=== PATIENT | male | born 1985 | race Caucasian/White ===

== ENCOUNTER 2020-05-13 10:22 | Inpatient (IN) | payer OTHER ==
[~2020-05-13] VITALS: Ht 181.6 cm; Wt 76.8 kg
[2020-05-13 12:23] LABS: BASOPHILS % (AUTO) 1.5 % (0.0-2.0); EOSINOPHILS % (AUTO) 2.2 % (1.0-6.0); HEMATOCRIT 44.5 % (41-53); HEMOGLOBIN 15.4 g/dL (13.5-17.5); LYMPHOCYTES # (AUTO) 1.2 K/uL (1.0-4.8); LYMPHOCYTES % (AUTO) 45.1 % (22.0-44.0); MEAN CORPUSCULAR HEMOGLOBIN 28.4 pg (26.0-34.0); MEAN CORPUSCULAR HGB CONC 34.6 G/dL (31.0-37.0); MEAN CORPUSCULAR VOLUME 82 fL (80-100); MONOCYTES # (AUTO) 0.3 K/uL (0.1-1.0); MONOCYTES % (AUTO) 10.3 % (2.0-9.0); NEUTROPHILS # (AUTO) 1.1 K/uL (1.8-7.7); NEUTROPHILS % (AUTO) 40.9 % (40.0-70.0); PLATELET COUNT (AUTO) 143 K/uL (150-450); RED BLOOD CELL COUNT(AUTO) 5.43 MIL/uL (4.50-5.90)
[2020-05-13 12:24] LABS: CREATININE 1.4 mg/dL (0.60-1.30); POTASSIUM 3.7 mmol/L (3.5-5.1)
[2020-05-13 12:30] LABS: ALBUMIN 4.7 g/dL (3.4-5.0); TOTAL PROTEIN, SERUM 7.7 g/dL (6.4-8.2)
[2020-05-13 13:13] VITALS: BP 107/75
[2020-05-13] MEDS ORDERED: ONDANSETRON HCL 4 MG/2 ML VIAL IVP PRN (13:15)
[2020-05-13] MEDS ORDERED: ACETAMINOPHEN 325 MG TABLET PO PRN ×2 (13:15→15:30)
[2020-05-13] MEDS ORDERED: 0.9% SODIUM CHLORIDE 10 ML SYRINGE IVP PRN (13:15)
[2020-05-13] MEDS ORDERED: MAGNESIUM SULFATE 2 GM, MVI, ADULT NO.1 WITH VIT K 10 ML, THIAMINE 100 MG, FOLIC ACID 1... IV ONE ×5 (14:00)
[2020-05-13] MEDS ORDERED: ALBUTEROL SULFATE HFA 90 MCG/PUFF 8 GM INHALER IH PRN (15:30)
[2020-05-13] MEDS ORDERED: MAGNESIUM HYDROXIDE SUSPENSION 30 ML UDCUP PO PRN (15:30)
[2020-05-13] MEDS ORDERED: POTASSIUM CHL 10 MEQ/WATER 50 ML IV PRN (15:30)
[2020-05-13] MEDS ORDERED: MAGNESIUM SULFATE 4 GM/WATER 100 ML IV PRN (15:30)
[2020-05-13] MEDS ORDERED: MAGNESIUM SULFATE 2 GM/WATER 50 ML IV PRN (15:30)
[2020-05-13] MEDS ORDERED: PETROLATUM,WHITE 28 GM JELLY TP PRN (15:30)
[2020-05-13] MEDS ORDERED: MAGNESIUM OXIDE 400 MG TABLET PO PRN (15:30)
[2020-05-13] MEDS ORDERED: CloNIDine HCL 0.1 MG TABLET PO PRN (15:30)
[2020-05-13] MEDS ORDERED: ONDANSETRON HCL 4 MG TABLET PO PRN (15:30)
[2020-05-13] MEDS ORDERED: DOCUSATE SODIUM 100 MG CAPSULE PO PRN (15:30)
[2020-05-13] MEDS ORDERED: MAG HYDROX/AL HYDROX/SIMETH ES 30 ML SUSPENSION UDCUP PO PRN (15:30)
[2020-05-13] MEDS ORDERED: GuaiFENesin/D-METHORPHAN [SUGAR-FREE] 200-20MG/10 ML SYRUP UDCUP PO PRN (15:30)
[2020-05-13] MEDS ORDERED: POTASSIUM CHLORIDE 20 MEQ ER TABLET PO PRN (15:30)
[2020-05-13] MEDS ORDERED: LOPERAMIDE HCL 2 MG CAPSULE PO PRN (15:30)
[2020-05-13 16:07] VITALS: BP 102/71
[2020-05-13] MEDS: THIAMINE 100 MG TABLET PO SCH (17:58)
[2020-05-13] MEDS: FOLIC ACID 1 MG TABLET PO SCH (17:58)
[2020-05-13 19:30] VITALS: BP 142/76
[2020-05-14] MEDS: IBUPROFEN 400 MG TABLET PO PRN ×2 (03:12→15:37)
[2020-05-14 05:05] VITALS: BP 128/71
[2020-05-14 07:17] VITALS: BP 103/53
[2020-05-14] MEDS: FOLIC ACID 1 MG TABLET PO SCH (08:05)
[2020-05-14] MEDS: THIAMINE 100 MG TABLET PO SCH (08:05)
[2020-05-14 15:10] VITALS: BP 100/53
[2020-05-14 20:40] VITALS: BP 99/65
[2020-05-15] MEDS ORDERED: ZOLPIDEM TARTRATE 5 MG TABLET PO PRN (00:30)
[2020-05-15 05:45] VITALS: BP 110/61
[2020-05-15 07:31] VITALS: BP 109/70
[2020-05-15] MEDS: THIAMINE 100 MG TABLET PO SCH (08:54)
[2020-05-15] MEDS: AMOX TR/POT CLAV 500 MG/125 MG TABLET PO SCH ×2 (08:54→15:28)
[2020-05-15] MEDS: FOLIC ACID 1 MG TABLET PO SCH (08:54)
[2020-05-15] MEDS ORDERED: FOLI-130 PO (14:43)
[2020-05-15] MEDS ORDERED: THIA100T80 PO (14:44)
[2020-05-15] MEDS ORDERED: IBUP-2124 PO (14:48)
[2020-05-15] MEDS ORDERED: IBUP-1506 PO (14:52)
[2020-05-15] MEDS ORDERED: AMOX1TAB15 PO (14:55)
[2020-05-15 15:48] VITALS: BP 122/78
== END 2020-05-15 20:45 | DRG 641 ==
LOC: EMS 10:30 → 6S 12:46
PROVIDERS: ADMIT Internal Medicine; ATTEND Internal Medicine
DX: E86.0 Dehydration (principal); N17.9 Acute kidney failure, unspecified; F17.210 Nicotine dependence, cigarettes, uncomplicated
CPT/HCPCS: J3411; J3475; J3490; J7030

== ENCOUNTER 2020-05-25 14:09 | Inpatient (IN) | payer OTHER ==
[~2020-05-25] VITALS: Ht 190.5 cm; Wt 69.0 kg
[~2020-05-25 14:09] MED LIST: AMOX1TAB15 PO; FOLI-130 PO; IBUP-1506 PO; THIA100T80 PO
[2020-05-25] MEDS ORDERED: SODIUM CHLORIDE 0.9% 1,000 ML IV ONE (14:45)
[2020-05-25 15:23] LABS: EOSINOPHILS % (AUTO) 1.3 % (1.0-6.0); HEMATOCRIT 40.3 % (41-53); HEMOGLOBIN 14.1 g/dL (13.5-17.5); LYMPHOCYTES # (AUTO) 1.5 K/uL (1.0-4.8); MEAN CORPUSCULAR HEMOGLOBIN 29.1 pg (26.0-34.0); MEAN CORPUSCULAR HGB CONC 35.1 G/dL (31.0-37.0); MEAN CORPUSCULAR VOLUME 83 fL (80-100); MONOCYTES # (AUTO) 0.4 K/uL (0.1-1.0); MONOCYTES % (AUTO) 12.2 % (2.0-9.0); NEUTROPHILS % (AUTO) 32.5 % (40.0-70.0); PLATELET COUNT (AUTO) 179 K/uL (150-450); RED BLOOD CELL COUNT(AUTO) 4.86 MIL/uL (4.50-5.90); RED CELL DISTRIBUTION WIDTH 13.2 % (11.5-14.5)
[2020-05-25 16:31] LABS: ANION GAP 17 mmol/L (8-16); CALCIUM, TOTAL 8.9 mg/dL (8.8-10.5); CARBON DIOXIDE 24 mmol/L (22-29); CHLORIDE 99 mmol/L (98-107); CREATININE 1.07 mg/dL (0.60-1.30); GLOMERULAR FILTR. RATE CALC > 60 mL/min (>60); GLUCOSE,RANDOM 62 mg/dL (70-110); POTASSIUM 4.5 mmol/L (3.5-5.1); SODIUM SERUM 140 mmol/L (136-145); UREA NITROGEN, BLOOD 11 mg/dL (7-18)
[2020-05-25 16:36] LABS: ALANINE AMINOTRANSFERASE 18 U/L (12-78); ALBUMIN 4.2 g/dL (3.4-5.0); ALKALINE PHOSPHATASE 45 U/L (46-116); ASPARTATE AMINOTRANSFERASE 20 U/L (15-37); BILIRUBIN,TOTAL 1.7 mg/dL (0.1-1.0); CREATINE KINASE, TOTAL ONLY 48 U/L (39-308); TOTAL PROTEIN, SERUM 7.7 g/dL (6.4-8.2)
[2020-05-25] MEDS ORDERED: ONDANSETRON HCL 4 MG/2 ML VIAL IVP PRN (17:30)
[2020-05-25] MEDS ORDERED: 0.9% SODIUM CHLORIDE 10 ML SYRINGE IVP PRN (17:30)
[2020-05-25 21:15] VITALS: BP 106/70
[2020-05-25] MEDS: ACETAMINOPHEN 325 MG TABLET PO PRN (22:54)
[2020-05-26] MEDS: ACETAMINOPHEN 325 MG TABLET PO PRN (03:11)
[2020-05-26 04:00] VITALS: BP 104/59
[2020-05-26] MEDS ORDERED: ZOLPIDEM TARTRATE 5 MG TABLET PO PRN (04:00)
[2020-05-26] MEDS ORDERED: IPRATROPIUM BROMIDE 0.5 MG/2.5 ML NEB SOLUTION NEB PRN (04:00)
[2020-05-26] MEDS ORDERED: BISACODYL 10 MG RECTAL RECTAL SUPPOSITORY PR PRN (04:00)
[2020-05-26] MEDS ORDERED: ONDANSETRON HCL 4 MG/2 ML VIAL IVP PRN (04:00)
[2020-05-26] MEDS ORDERED: ALBUTEROL SULFATE 2.5 MG/0.5 ML NEB SOLUTION NEB PRN (04:00)
[2020-05-26] MEDS ORDERED: ACETAMINOPHEN 325 MG TABLET PO PRN (04:00)
[2020-05-26] MEDS ORDERED: MAGNESIUM HYDROXIDE SUSPENSION 30 ML UDCUP PO PRN (04:00)
[2020-05-26] MEDS ORDERED: HEPARIN SODIUM,PORCINE 5,000 UNITS/ML VIAL SQ SCH (08:00)
[2020-05-26] MEDS ORDERED: DOCUSATE SODIUM 100 MG CAPSULE PO SCH (09:00)
[2020-05-26 10:01] VITALS: BP 108/67
== END 2020-05-26 20:40 | DRG 641 ==
LOC: EMS 14:11 → 6N 18:40 → 6S 19:00
PROVIDERS: ADMIT Hospitalist; ATTEND Hospitalist
DX: E86.0 Dehydration (principal); K08.89 Other specified disorders of teeth and supporting structures; Z72.0 Tobacco use
CPT/HCPCS: 93005; J1644; J7030